=== PATIENT | female | born 1990 | race Caucasian/White ===

== ENCOUNTER 2016-04-14 10:43 | Emergency (ER) | payer OTHER ==
[~2016-04-14] VITALS: Ht 160 cm; Wt 83.6 kg
[~2016-04-14 10:43] MED LIST: AMOXICILLIN875 MG PO; BACTERICIN30 GM TP; COLACE100 MG PO; DIFLUCAN150 MG PO; FEOSOL325 MG PO; IBUPROFEN800 MG PO; MACROBID100 MG PO; MOTRIN800 MG PO; Motrin PO; NO HOME MEDS; NOHOMEMEDS; PEN-VEE K,VEET500 MG PO; PRENACARE TABL1 EACH PO; PRENATABS FA T1 EACH PO; ULTRAM50 MG PO
[2016-04-14 10:54] VITALS: BP 134/89
[2016-04-14 13:52] LABS: EOSINOPHIL (%) 4.4 % (0-5); EOSINOPHIL COUNT 0.2 K/uL (0-0.3); HEMATOCRIT 42.7 % (36.0-46.0); IMMATURE GRANULOCYTE (%) 0.2 % (0.0-0.7); IMMATURE GRANULOCYTE COUNT 0.1 K/uL; LYMPHOCYTE COUNT 1.4 K/uL (1.0-2.8); MCHC 33.7 G/DL (30.0-36.0); MCV 85.9 FL (83-99); MEAN PLAT.VOLUME 9.9 uM^3 (9.5-12.4); MONOCYTE (%) 11.5 % (3-12); MONOCYTE COUNT 0.6 K/uL (0-0.8); NEUTROPHIL (%) 57.6 % (45-76); NEUTROPHIL COUNT 3.2 K/uL (1.8-6.4); PLATELET COUNT 246 K/uL (156-360); RBC DIS.WIDTH-CV 13.3 % (11.8-14.6); RED BLOOD COUNT 4.97 M/uL (3.80-5.20); WHITE BLOOD COUNT 5.5 K/uL (4.1-10.2)
[2016-04-14 14:03] LABS: CHLORIDE 105 mEq/L (99-109); POTASSIUM 3.8 mEq/L (3.7-5.4); SODIUM 137 mEq/L (136-147)
[2016-04-14 14:05] LABS: GLUCOSE 89 mg/dL (70-99)
[2016-04-14 14:07] LABS: ANION GAP 9 MEQ/L (2-14); TOTAL BILIRUBIN 0.4 mg/dL (0.0-1.0)
[2016-04-14 14:09] LABS: ALKALINE PHOSPHATASE 91 IU/L (3-129); GFR ESTIMATE (CALCULATED) > 59 mL/min/
[2016-04-14 14:10] LABS: UREA NITROGEN (BUN) 8 mg/dL (9-23)
[2016-04-14 14:18] LABS: QUANTITATIVE HCG < 4.0 MIU/ML
[2016-04-14 14:39] LABS: ADD MIUA? YES; BILIRUBIN NEGATIVE; BLOOD LARGE; COLOR YELLOW ((YELLOW)); GLUCOSE (STRIP) NEGATIVE; KETONES NEGATIVE; LEUKOCYTES MODERATE; NITRITE NEGATIVE; PH, URINE 5.5 (5-8); PROTEIN (STRIP) NEGATIVE; UROBILINOGEN 0.2 MG/DL (0.2-1.0)
[2016-04-14 14:53] LABS: BACTERIA 1+; CASTS NONE SEEN /LPF; EPITHELIAL CELLS 1+; MUCUS NONE SEEN; PATHOLOGICAL CAST NONE SEEN; RED BLOOD CELLS 0-5 /HPF (0-5); SMALL ROUND CELL NONE SEEN; UCUL ADDED? NO; YEAST-LIKE CELL NONE SEEN
[2016-04-14 15:08] LABS: CRYSTALS PRESENT
[2016-04-14 15:09] LABS: AMORPHOUS URATES CRYSTALS 1+
[2016-04-15] MEDS ORDERED: ANTIVERT25 MG PO (18:37)
== END 2016-04-14 14:56 | disposition left against medical advice (07) ==
LOC: RME 10:43 → EME 10:43 → RME 14:56
PROVIDERS: Physician Assistant
PROC: 3E1B78Z Irrigation of Ear using Irrigating Substance, Via Natural or Artificial Opening (ICD-10-PCS; principal; 2016-04-14)
DX: R42 Dizziness and giddiness (principal); N39.0 Urinary tract infection, site not specified; K52.9 Noninfective gastroenteritis and colitis, unspecified; H61.23 Impacted cerumen, bilateral; J02.9 Acute pharyngitis, unspecified
CPT/HCPCS: 80053; 81003; 84702; 85025; 87651 90; 99281; 99285

== ENCOUNTER 2016-04-15 14:32 | Emergency (ER) | payer OTHER ==
[~2016-04-15] VITALS: Ht 160 cm; Wt 82.9 kg
[2016-04-15] MEDS ORDERED: ANTIVERT25 MG PO (18:37)
[2016-04-15 18:56] VITALS: BP 106/63
== END 2016-04-15 18:56 | disposition home or self-care (01) ==
LOC: EME 14:32
DX: R42 Dizziness and giddiness (principal)
CPT/HCPCS: 70450; 93005; 99281; 99284

== ENCOUNTER 2016-04-30 11:32 | Emergency (ER) | payer OTHER ==
[~2016-04-30] VITALS: Ht 160 cm; Wt 82.0 kg
[~2016-04-30 11:32] MED LIST changes: +ANTIVERT25 MG PO
[2016-04-30 13:35] LABS: INFLUENZA A VIRAL ANTIGEN NEGATIVE; INFLUENZA B VIRAL ANTIGEN NEGATIVE
[2016-04-30] MEDS ORDERED: AMOXICILLIN500 MG PO (13:38)
[2016-04-30 14:20] VITALS: BP 117/80
== END 2016-04-30 14:32 | disposition home or self-care (01) ==
LOC: EME 11:32
PROVIDERS: Nurse Practitioner Family
DX: J02.0 Streptococcal pharyngitis (principal); J34.89 Other specified disorders of nose and nasal sinuses
CPT/HCPCS: 87502; 87651 90; 99281; 99284

== ENCOUNTER 2016-10-19 19:32 | Emergency (ER) | payer OTHER ==
[~2016-10-19] VITALS: Ht 160 cm; Wt 80.9 kg
[~2016-10-19 19:32] MED LIST changes: +AMOXICILLIN500 MG PO
[2016-10-19 20:01] LABS: HEMATOCRIT 43.7 % (36.0-46.0); MCH 29.6 PG (29.0-34.0); MCHC 33.4 G/DL (30.0-36.0); MCV 88.6 FL (83-99); MEAN PLAT.VOLUME 10.6 uM^3 (9.5-12.4); PLATELET COUNT 231 K/uL (156-360); RBC DIS.WIDTH-CV 12.3 % (11.8-14.6); RBC DIS.WIDTH-SD 40.1 % (39-53); RED BLOOD COUNT 4.93 M/uL (3.80-5.20); WHITE BLOOD COUNT 10.9 K/uL (4.1-10.2)
[2016-10-19 20:20] LABS: CHLORIDE 101 mEq/L (99-109); POTASSIUM 4.1 mEq/L (3.7-5.4)
[2016-10-19 20:21] LABS: SODIUM 136 mEq/L (136-147)
[2016-10-19 20:23] LABS: GLUCOSE 90 mg/dL (70-99)
[2016-10-19 20:24] LABS: ANION GAP 9 MEQ/L (2-14)
[2016-10-19 20:25] LABS: TOTAL BILIRUBIN 0.4 mg/dL (0.0-1.0)
[2016-10-19 20:26] LABS: ALKALINE PHOSPHATASE 89 IU/L (3-129)
[2016-10-19 20:27] LABS: GFR ESTIMATE (CALCULATED) > 59 mL/min/
[2016-10-19 20:28] LABS: DIRECT BILIRUBIN 0.1 mg/dL (0.0-0.3); UREA NITROGEN (BUN) 12 mg/dL (9-23)
[2016-10-19 20:30] LABS: LIPASE 19 U/L (1.0-51.0)
[2016-10-19 20:32] LABS: TROP-I INTERPRETATION NEGATIVE; TROPONIN-I < 0.01 ng/mL (0.0-0.30)
[2016-10-19] MEDS ORDERED: NAPROSYN500 MG PO (21:07)
[2016-10-19 21:24] LABS: QUANTITATIVE HCG < 4.0 MIU/ML
[2016-10-19] MEDS ORDERED: ATARAX,VISTARIL25 MG PO (21:26)
[2016-10-19 21:45] VITALS: BP 119/80
== END 2016-10-19 21:46 | disposition home or self-care (01) ==
LOC: EME 19:32
PROVIDERS: Physician Assistant Medical
DX: M94.0 Chondrocostal junction syndrome [Tietze] (principal)
CPT/HCPCS: 71020; 80048; 80076; 83690; 84484; 84702; 85027; 93005; 99281; 99282; J1885; Q0177

== ENCOUNTER 2017-02-20 19:52 | Emergency (ER) | payer OTHER ==
[~2017-02-20] VITALS: Ht 160 cm; Wt 84.3 kg
[~2017-02-20 19:52] MED LIST changes: +ATARAX,VISTARIL25 MG PO; +NAPROSYN500 MG PO
[2017-02-20 20:19] LABS: HEMATOCRIT 43.2 % (36.0-46.0); MCH 30.3 PG (29.0-34.0); MCHC 33.8 G/DL (30.0-36.0); MCV 89.6 FL (83-99); MEAN PLAT.VOLUME 10.1 uM^3 (9.5-12.4); PLATELET COUNT 312 K/uL (156-360); RBC DIS.WIDTH-CV 12.4 % (11.8-14.6); RBC DIS.WIDTH-SD 40.8 % (39-53); RED BLOOD COUNT 4.82 M/uL (3.80-5.20); WHITE BLOOD COUNT 9.1 K/uL (4.1-10.2)
[2017-02-20 20:28] LABS: CHLORIDE 106 mEq/L (99-109); POTASSIUM 3.7 mEq/L (3.7-5.4); SODIUM 138 mEq/L (136-147)
[2017-02-20 20:30] LABS: GLUCOSE 102 mg/dL (70-99)
[2017-02-20 20:31] LABS: ANION GAP 9 MEQ/L (2-14)
[2017-02-20 20:32] LABS: TOTAL BILIRUBIN 0.4 mg/dL (0.0-1.0)
[2017-02-20 20:34] LABS: ALKALINE PHOSPHATASE 86 IU/L (3-129); GFR ESTIMATE (CALCULATED) > 59 mL/min/
[2017-02-20 20:35] LABS: UREA NITROGEN (BUN) 11 mg/dL (9-23)
[2017-02-20 20:42] LABS: QUANTITATIVE HCG < 4.0 MIU/ML
[2017-02-20 20:47] LABS: ADD MIUA? YES; BILIRUBIN NEGATIVE; BLOOD MODERATE; COLOR YELLOW ((YELLOW)); GLUCOSE (STRIP) NEGATIVE; KETONES NEGATIVE; LEUKOCYTES MODERATE; NITRITE NEGATIVE; PROTEIN (STRIP) 30; SPECIFIC GRAVITY 1.021 (1.000-1.030); UROBILINOGEN 0.2 MG/DL (0.2-1.0)
[2017-02-20 20:58] LABS: BACTERIA RARE /HPF; EPITHELIAL CELLS 1+ /HPF; MUCUS TRACE /LPF; UCUL ADDED? YES
[2017-02-20] MEDS ORDERED: KEFLEX500 MG PO (21:32)
[2017-02-20] MEDS ORDERED: NAPROSYN500 MG PO (21:32)
[2017-02-20 21:48] VITALS: BP 112/78
== END 2017-02-20 21:49 | disposition home or self-care (01) ==
LOC: EME 19:52 → RME 19:52
DX: N39.0 Urinary tract infection, site not specified (principal); R10.30 Lower abdominal pain, unspecified; R60.0 Localized edema
CPT/HCPCS: 80053; 81003; 84702; 85027; 87086; 99281; 99283